=== PATIENT | male | born 1995 ===

== ENCOUNTER 2021-03-18 23:56 | Emergency (ER) | payer OTHER, SELFPAY ==
[2021-03-18 23:58] VITALS: BP 146/72; PULSE 76; O2SAT 98
[2021-03-19 00:02] VITALS: BP 139/75; PULSE 70; RESP 16; TEMP 36.6; O2SAT 97; BMI 27.2
--- NOTE | 2021-03-19 00:23 | PC.NURSE ---
Pt refusing changeover with security, requesting to leave. 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
--- NOTE | 2021-03-19 00:26 | PC.NURSE ---
at bedside for primary eval.
--- NOTE | 2021-03-19 00:45 | ED.GENADULT ---
HPI - General Adult General Chief complaint: ETOH/Substance Use Stated complaint: substance use Time Seen by Provider: 03/19/21 00:33 History of Present Illness HPI narrative: 25-year-old male who presents emergency department for evaluation of an unintentional narcotic overdose. The patient states that he was smoking ?dope ?. He states that he normally smokes crack cocaine but this evening he smokes cocaine mixed with fentanyl. He states that he has not used fentanyl and a long period of time. He does not have any memory of what happened after using these drugs. According to the nursing notes, EMS states that the patient was [place] unresponsive in an alley and he was given 4 mg of nasal Narcan which caused him to wake up. The patient states that he has a monomer recovery supervisor. States that does not want to be here in the emergency department this time and refuses to get undressed. Related Data Allergies Allergy/AdvReac Type Severity Reaction Status Date / Time No Known Allergies Allergy Verified 03/19/21 00:09 Review of Systems Review of Systems: Yes all other systems are reviewed and are negative [facility] Past Medical History [facility] Narrative: Past medical history: Schizophrenia, polysubstance abuse. Past surgical history: None. Social history: Patient smokes 1/2 pack of cigarettes per day x2 years. He states that he drinks alcohol occasionally, he denies drinking alcohol this evening. He states that he does use cocaine , heroin and fentanyl. Medical History (Updated 03/19/21 @ 00:35 by Flo Willett MD) Schizophrenia Substance abuse Social History Social History Advance Directives: No Physical Exam Vital Signs: Vital Signs: Last Vital Signs Temp 97.9 F 03/19/21 00:02 Pulse 70 03/19/21 00:02 Resp 16 03/19/21 00:02 BP 139/75 03/19/21 00:02 Pulse Ox 97 03/19/21 00:02 Body Mass Index 27.2 Const: General: healthy appearing Nutritional Appearance: well nourished Orientation/consciousness: oriented to person and oriented to place Limitations: no limitations HENMT: Head: Yes normal to inspection, Yes normocephalic and Yes atraumatic Ears: external ears normal General nose exam: Normal external nose present Face and sinus: Yes normal facial exam Mouth: Normal oral and palatal mucosa present Throat: Yes posterior oropharynx normal Eyes: Periorbital: periorbital findings normal Eyelids: Yes eyelids normal Conjunctivae: conjunctivae normal Sclerae: sclerae normal Corneas: corneas normal Pupils: Equal, round and reactive pupils present Direct Ophthalmoscopy: normal light reflex Neck: Neck: Yes full ROM, Yes no lymphadenopathy, Yes no meningeal signs, Yes trachea midline and Yes supple Chest: Chest palpation & inspection: normal inspection of the chest and normal palpation of entire chest wall Resp: Effort & Inspection: normal respiratory effort and able to speak in complete sentences Auscultation: clear to auscultation bilaterally Cardio: Rate: regular rate Rhythm: regular rhythm Heart sounds: S1 normal heart sound present, S2 normal heart sound present and no murmurs GI: Inspection: Yes normal to inspection Palpation (GI): Soft to palpation, nontender, no guarding, not rigid and No hepatosplenomegaly present : General: Yes no CVA tenderness Back/Spine/Pelvis: Back: no CVA tenderness Cervical Spine: normal cervical lordosis Thoracic/Lumbar Spine: thoracic and lumbar spine normal to inspection Neuro: General: oriented to person, oriented to place and no meningeal signs Cranial nerves: Yes CN's II-XII intact bilaterally and Yes Equal, round and reactive pupils present Cognition (Neuro): normal cognition Motor exam (neuro): 5/5 motor strength present throughout Extrem: General: Yes normal to inspection and Yes full ROM Psych: Appearance: well kempt Mental Status: mental status grossly normal Speech and movement: Normal speech and movement present Affect: normal affect Thought process: Normal thought process present Thought content: Normal thought content present Course Course Course Narrative: 25-year-old male who presents emergency department for evaluation of an attentional narcotic overdose. The patient was found unresponsive in treated with 4 mg of intranasal Narcan. Here in the emergency department the patient is awake, alert, he is oriented to person and place. He states that he does not want any treatment in the emergency department. He states that does not want any crisis counseling for his opiate use disorder/polysubstance use disorder. Patient did tell me that he has a monomer recovery supervisor. He also told me that he has intranasal Narcan at home. The patient is capable of understanding the consequences of leaving the emergency department early and not being observed for possible rebound effect of the opiate. He is not suicidal or homicidal therefore he will be discharged. He will be given intranasal Narcan dispense pack. I told him it is important that he contact his monomer recovery supervisor to get help with his polysubstance abuse. I did tell him is at high risk of dying continues to use drugs. I did discuss with him that he should use drugs in the presence of a sober adult who can administer intranasal Narcan to in in the event that he loses consciousness or stops breathing. Discharge Plan Discharge Clinical Impression: Overdose opiate Qualifiers: Encounter type: initial encounter Injury intent: accidental or unintentional Qualified Code(s): T40.601A - Poisoning by unspecified narcotics, accidental (unintentional), initial encounter Patient Disposition: Home, Self-Care Additional Instructions: You accidentally overdosed on a narcotic this evening. According to the nanotechnology technician notes, you were found unresponsive and you were given intranasal Narcan. I am sending you home with a intranasal Narcan Dosepak. If you are going to use in ?dope ?again, you should make sure that there is someone with you that is not using drugs and is sober and that this person can give you intranasal Narcan in the event that you pass out stop breathing. You should contact the monomer recovery supervisor to discuss getting help with your drug use. Your high risk of dying a drug overdose if you continue to use drugs. If you change your mind, and want help, please return to the emergency department and we can get you crisis counseling and get a monomer recovery supervisor to help you as well.
[2021-03-19] MEDS: Naloxone HCl Nasal TAKE HOME 4 MG SPRAY NOSTRILALT (00:50)
--- NOTE | 2021-03-19 01:04 | PC.NURSE ---
Pt refused DC VS. Provided with take home Narcan per DEC.
== END 2021-03-19 01:05 | disposition home or self-care (01) ==
LOC: HO.ED 03-19 00:53
PROVIDERS: Emergency Provider Emergency Medicine Emergency Medical Services
DX: T40.601A Poisoning by unspecified narcotics, accidental (unintentional), initial encounter (principal); Y92.9 Unspecified place or not applicable
CPT/HCPCS: 99283